=== PATIENT | male | born 1980 ===

== ENCOUNTER 2021-12-23 18:44 | Inpatient (IN) | payer MEDICAID, OTHER ==
[2021-12-23] MEDS ORDERED: MAG HYDROX/AL HYDROX/SIMETH 30 ML CUP PO PRN (18:52)
[2021-12-23] MEDS ORDERED: OLANZapine 10 MG VIAL IM PRN (18:52)
[2021-12-23] MEDS ORDERED: hydrOXYzine HCL 50 MG/ML 1 ML VIAL IM PRN (18:52)
[2021-12-23] MEDS ORDERED: MAGNESIUM HYDROXIDE 2,400 MG/10 ML CUP PO PRN (18:52)
[2021-12-24] MEDS: OLANZapine 5 MG TAB PO PRN ×3 (02:44→17:02)
[2021-12-24] MEDS: hydrOXYzine pamoate 25 MG CAP PO PRN ×3 (02:44→17:02)
[2021-12-24] MEDS: NICOTINE 14MG/24HR PATCH TRANSDERM SCH (09:35)
[2021-12-24] MEDS: ACETAMINOPHEN TAB 325 MG TAB PO PRN ×2 (09:57→17:02)
--- NOTE | 2021-12-24 10:43 | P.HP ---
Psychiatric H&P - . H&P Date: 12/24/21 History & Physical: Allergies Allergy/AdvReac Type Severity Reaction Status Date / Time No Known Allergies Allergy Verified 12/23/21 18:48 Vital Signs Temp 99.2 F 12/24/21 01:50 Pulse 81 12/24/21 01:50 Resp 18 12/24/21 01:50 BP 139/86 12/24/21 01:50 Pulse Ox 97 12/24/21 01:50 FiO2 Intake & Output 12/23/21 12/24/21 12/24/21 18:59 06:59 18:59 Weight 85 kg 67.3 kg 12/24/21 10:37 IDENTIFYING DATA: Patient is a 41-year-old male, currently lives with his mother and stepfather. She has 3 children, . HPI: Patient presented to the hospital as a transfer from [place]. Patient was on a petition filled out by social work case manager the claims the patient was expressing auditory hallucinations, paranoid thinking, delusional and believes that his father is John Medel. Patient was admitted involuntarily to the mental health unit. He was seen wandering the hallway and appeared to be confused however was agreeable to speak to automobile service writer. Patient appears to be irritable, has low frustra tion tolerance. He had several tattoos over his body and also his head. He did not know why he is in the hospital. She was focused on obtaining his clothes. He made some bizarre statements and was illogical at times. He states that he has a history of bipolar disorder and stopped taking his medications. He does not know why he is in the hospital. He was fairly guarded and evasive as well. He states that "is it because I'm a knife". He knows that he is an [place] however police that it is 12/28/2021. He knows his full name. He claims that his sleep is fair appetite is poor. He claims that he was on Adderall and was requesting to be on it again. Patient denies any suicidal or homicidal ideations intent or plan. At this time patient denies any auditory or visual hallucinations. Claims that he has a history of manic episodes however does not have racing thoughts. He was given Zyprexa earlier and appears to be somewhat drowsy. Patient admits to using marijuana occasionally, cigarettes daily. Denies any other recreational drugs. PAST PSYCHIATRIC HISTORY: Patient states that he has a history of bipolar disorder. He claims that he is previously on psychiatric medications for bipolar disorder over is not able to recall which ones he was on except for Adderall. He states that he has been psychiatrically hospitalized several times in the past including spending one year in a forensic facility. Patient denies any psychiatric outpatient follow-up. Patient denies any history of suicide attempts in the past. PMH: As per medicine H&P ALLERGIES: as per EMR CHEMICAL DEPENDENCY HISTORY: as per HPI FAMILY PSYCHIATRIC/SUBSTANCE USE HISTORY: Claims that his father and uncle both abused alcohol. SOCIAL HISTORY: [place] and states that he completed high school. He states that he is currently at this time. He states that he lives with his mother and also stepfather. 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 He claims that he completed high school. MENTAL STATUS EXAM: General Appearance: Patient appears to be thin, several tattoos over his body and head. Shaved head. stated age is alert, evasive and guarded. Patient appears to have poor hygiene and grooming. Behavior: Patient is seated without any agitated behavior. Uncooperative at times. Irritable. Speech: Patient's speech is fluent and nonpressured. Bizarre at times Mood/Affect: Patient reports their mood is "okay", affect is incongruent and constricted. Suicidality/Homicidality: Patient denies having any homicidal ideation intent or plan. Denies any suicidal ideations intent or plan Perceptions: Patient denies any visual hallucinations and denies any auditory hallucinations Though content/process: Bizarre content, illogical at times. Not endorsing any delusions. Memory and concentration: AOX2, does not know today's current date, attention span is poor. Can spell "WORLD" backwards Judgment and insight: poor STRENGTHS/WEAKNESSES: strength is that patient is resilient. Weakness is that patient has poor judgment and is impulsive INTELLECT: average IMPRESSIONS: Bipolar disorder with psychotic features Noncompliance with medications Cannabis use disorder mild Nicotine dependence PLAN: -Patient is admitted under involuntary status to MHU for stabilization of psychiatric symptoms and safety. Patient has not signed medication consent and is placed in patient's chart. A second certification was completed and along with petition will be filed for court. -Medications : Will start patient on Abilify 5 mg daily for psychosis/mood stabilization. Trazodone 50 mg daily at bedtime for sleep/mood. -vistaril and zyprexa PRN for agitation/aggression -Patient was counselled on substance abuse and desired to cut back on use -Patient was informed of the risks, benefits and side effects of the medication and patient verbally consented to taking the medications. Patient signed med consent form and was placed in chart. -Internal Medicine consult to perform medical evaluation and physical. -NRT - nicotine patch -SW on board for discharge planning. Encourage patient to participate in groups to work on coping skills. Will await deferral and court date. 12/24/21 10:43
[2021-12-24] MEDS: ARIPiprazole 5 MG TAB PO SCH (11:49)
[2021-12-24] MEDS: BENZOCAINE/MENTHOL LOZENG 1 EACH LOZENGE MUCOUS MEM PRN ×2 (13:53→17:01)
[2021-12-24 18:33] LABS: Chol/HDL Ratio 2.35 Ratio; LDL Cholesterol,Calculated 42.4 mg/dL (0.0-131.0); VLDL Calculation 13.28 mg/dL (5.00-40.00)
[2021-12-24] MEDS: METHADONE 10 MG TAB PO SCH (18:44)
[2021-12-24] MEDS: METHADONE 5 MG TAB PO SCH (19:22)
[2021-12-24] MEDS: traZODone HCL 50 MG TAB PO SCH (20:20)
[2021-12-25] MEDS: BENZOCAINE/MENTHOL LOZENG 1 EACH LOZENGE MUCOUS MEM PRN ×2 (05:06→15:01)
[2021-12-25] MEDS: hydrOXYzine pamoate 25 MG CAP PO PRN ×3 (06:02→20:17)
[2021-12-25 07:05] VITALS: BP 171/93; PULSE 92; RESP 16; TEMP 98.8
[2021-12-25] MEDS: METHADONE 5 MG TAB PO SCH (07:56)
[2021-12-25] MEDS: METHADONE 10 MG TAB PO SCH (07:56)
[2021-12-25] MEDS: ARIPiprazole 5 MG TAB PO SCH (07:58)
[2021-12-25] MEDS: NICOTINE 14MG/24HR PATCH TRANSDERM SCH ×2 (07:59→20:27)
[2021-12-25] MEDS: OLANZapine 5 MG TAB PO PRN ×3 (09:27→21:46)
--- NOTE | 2021-12-25 11:17 | P.PN ---
Progress Note - Text Progress Note Date: 12/25/21 Interval History: Patient was seen wandering the hallways and was directable and agreeable to naima bello with scenario writer in the office. Patient claims that he has "a lot of stuff." When he leaves the hospital and feels that he is doing much better today. He appears to be somewhat drowsy and took a prn Vistaril and Zyprexa this morning. He states that his mood and anxiety have been improving. He was thankful for being placed back on methadone. He claims that he did not get a full night's rest however does not want his trazodone increased. He appears to be somewhat directable today however was mildly irritable when talking about the court process and was fairly focused on discharge. At this time patient denies any suicidal or homical ideations, intent or plan. Patient denies any auditory, visual hallucinations and denies any paranoia or delusions. Patient denies any side effects from the medications and has been compliant with meds. Mental Status Exam: General Appearance: Patient appears to be thin, several tattoos over his body and head. Shaved head. stated age is alert, more cooperative. Patient appears to have improving hygiene and grooming. Behavior: Patient is seated without any agitated behavior. Less irritable today. Speech: Patient's speech is fluent and nonpressured. Mood/Affect: Patient reports their mood is "ok", affect is incongruent and constricted. Suicidality/Homicidality: Patient denies having any homicidal ideation intent or plan. Denies any suicidal ideations intent or plan Perceptions: Patient denies any visual hallucinations and denies any auditory hallucinations Though content/process: More goal oriented. Focused on discharge. Not endorsing any delusions. Memory and concentration: AOX3, improved attention span Judgment and insight: poor, improving mildly IMPRESSIONS: Bipolar disorder with psychotic features Noncompliance with medications Cannabis use disorder mild Nicotine dependence Plan: -Patient continues to meet criteria for inpatient psychiatric admission for symptom stabilization and safety. Patient has not signed adult voluntary form and medication consent and was placed in patient's chart. -Medications: Increase Abilify by mouth to 10 mg daily from psychosis/mood stabilization. Trazodone 50 mg daily at bedtime for sleep/mood. Continue with methadone 125 mg daily or opiate use disorder. -When necessary Vistaril and Zyprexa prn for agitation/aggression. -NRT - nicotine patch -SW on board for discharge planning. Encouraged the patient to participate in milieu. Currently awaiting deferral with child specialist and court date.
[2021-12-25] MEDS: traZODone HCL 50 MG TAB PO SCH (20:16)
[2021-12-25] MEDS: NICOTINE GUM (POLACRILEX) 2 MG GUM BUCCAL PRN (20:27)
[2021-12-26] MEDS: METHADONE 5 MG TAB PO SCH (07:49)
[2021-12-26] MEDS: METHADONE 10 MG TAB PO SCH (07:49)
[2021-12-26] MEDS: NICOTINE 14MG/24HR PATCH TRANSDERM SCH (07:50)
[2021-12-26] MEDS ORDERED: ARIPiprazole 10 MG TAB PO SCH (09:00)
[2021-12-26] MEDS: hydrOXYzine pamoate 25 MG CAP PO PRN ×2 (09:46→15:54)
[2021-12-26] MEDS: OLANZapine 5 MG TAB PO PRN ×2 (09:46→15:55)
--- NOTE | 2021-12-26 09:49 | P.DS ---
Providers Date of admission: 12/24/21 01:29 Expected date of discharge: 12/26/21 Attending physician: Silvestre Conway MD Consults: 12/23/21 18:52 Consult Physician Routine Consulting Provider: Wendy Gutierrez Consult Reason/Comments: H & P Do you want consulting provider notified?: Yes Primary care physician: Stated None - Discharge Diagnosis(es) (1) Bipolar disorder with psychotic features Current Visit: Yes Status: Acute Priority: High (2) Non compliance w medication regimen Current Visit: Yes Status: Acute Priority: Medium (3) Cannabis use disorder, mild, abuse Current Visit: Yes Status: Acute Priority: Medium (4) Nicotine dependence Current Visit: Yes Status: Acute Priority: Low Hospital Course: Admission HPI: Admission note was completed by typewriter repairer " Patient is a 41-year-old male, currently lives with his mother and stepfather. She has 3 children, . Patient presented to the hospital as a transfer from [place]. Patient was on a petition filled out by transition social worker the claims the patient was expressing auditory hallucinations, paranoid thinking, delusional and believes that his father is John Medel. Patient was admitted involuntarily to the mental health unit. He was seen wandering the hallway and appeared to be confused however was agreeable to speak to typewriter repairer. Patient appears to be irritable, has low frustration tolerance. He had several tattoos over his body and also his head. He did not know why he is in the hospital. She was focused on obtaining his clothes. He made some bizarre statements and was illogical at times. He states that he has a history of bipolar disorder and stopped taking his medications. He does not know why he is in the hospital. He was fairly guarded and evasive as well. He states that "is it because I'm a knife". He knows that he is an [place] however police that it is 12/28/2021. He knows his full name. He claims that his sleep is fair appetite is poor. He claims that he was on Adderall and was requesting to be on it again. Patient denies any suicidal or homicidal ideations intent or plan. At this time patient denies any auditory or visual hallucinations. Claims that he has a history of manic episodes however does not have racing thoughts. He was given Zyprexa earlier and appears to be somewhat drowsy. Patient admits to using marijuana occasionally, cigarettes daily. Denies any other recreational drugs." Hospital course: Upon admission to the unit patient was admitted involuntarily on a petition and certificate and a second certificate was completed and faxed with the courts. Patient ended up signing a deferral and will be deferring over zoom with veterinary medical officer before discharge today and agreeing to treatment. Patient was initially bizarre, confused and psychotic however with treatment got along well with other patients on the unit and followed unit protocol. Patient was compliant with the medications and denied any side effects throughout hospital course. Patient was started on Abilify and increased to a dose of 10 mg daily by mouth for mood stabilization/psychosis. Patient was also started on trazodone 50 mg daily at bedtime for insomnia/mood. Patient was restarted back on methadone 125 mg daily for opiate use disorder and this dose was confirmed with his MAT treatment provider. Patient had an ecg performed prioir to being restarted back on Methadone. vistaril prn for anxiety. Patient spoke of his stressors and engaged in therapy both group and individual. Patient was also seen by medical team for history and physical exam. Throughout the course of the hospitalization patient gradually improved with regards to mood stabilization, psychosis, anxiety, sleep and returned back to their baseline level of functioning. On the day of discharge patient denied any suicidal or homicidal ideations intent or plan denied any auditory or visual hallucinations. Patient endorsed wanting to live for his children and also his future. The patient denied any access to guns or weapons. Patient denied any paranoia and did not endorse any delusions. Patient does have a significant history of substance abuse and was counseled on abstaining from all substances including alcohol and marijuana. Patient was offered however declined inpatient substance- abuse rehab. Patient was also counseled on the medications and need for regular compliance and was encouraged to follow-up with their outpatient appointment for mental health and also for primary care. Mental status exam: General Appearance: Patient appears to be thin, several tattoos, shaved head, stated age is alert, pleasant, and cooperative. Patient is in no acute distress and has improved hygiene and grooming Behavior: Patient is calmly seated without any agitated behavior. Speech: Patient's speech is fluent and nonpressured. Mood/Affect: Patient reports their mood is "good", affect is congruent and euthymic. Suicidality/Homicidality: Patient denies having any suicidal or homicidal ideation intent or plan. Perceptions: Patient denies any auditory or visual hallucinations. Though content/process: There is no evidence of any delusional thought content and thought process is linear and goal-directed. more future oriented Memory and concentration: AOX3, grossly intact for the purposes of this session. Can spell "WORLD" backwards correctly. Judgment and insight: improved with guarded prognosis Impression: Bipolar disorder with psychotic features Noncompliance with medication regimen Cannabis use disorder mild diffuse Nicotine dependence Plan: -Continue with discharge today as patient has improved and stabilized psychiatrically and is not currently an imminent threat to himself and/or others. Patient will remain at chronically elevated risk for harm to self and/or others due to his impulsivity and substance abuse. -Continue medications: Abilify 10 mg daily by mouth for psychosis/mood stabilization, trazodone 50 mg daily at bedtime for sleep/mood, Vistaril 50 mg daily when necessary for anxiety. Patient will resume MAT treatment at his methadone clinic. -Patient was counseled on the need for medication compliance and appropriate follow-up at mental health and also primary care for medical issues. Patient verbalized understanding and agreed. -Social work to help arrange with patient's discharge today. Social work also to arrange for patients follow up appointments for psychiatric care along with follow up with primary care provider. -Patient counseled on abstaining from recreational drugs and marijuana and alcohol. Was informed/educated on the adverse effects on their physical and mental health. Patient verbally agreed and understood. Patient was offered substance abuse treatment however declined at this time. -Patient was instructed to return to the hospital or seek immediate medical care if their psychiatric or medical symptoms do worsen or reoccur. Allergies Allergy/AdvReac Type Severity Reaction Status Date / Time No Known Allergies Allergy Verified 12/23/21 18:[address] Glu mg/dL 120 12/24/21 11:27 Hemoglobin A1c 5.8 % (0.0-6.0) 12/24/21 11:27 Triglycerides 66.40 mg/dL (0.00-149.00) 12/24/21 11:27 Cholesterol 97.00 mg/dL (0.00-200.00) 12/24/21 11:27 LDL Cholesterol, Calc 42.4 mg/dL (0.0-131.0) 12/24/21 11:27 VLDL Cholesterol, Calc 13.28 mg/dL (5.00-40.00) 12/24/21 11:27 HDL Cholesterol 41.30 mg/dL (40.00-60.00) 12/24/21 11:27 Cholesterol/HDL Ratio 2.35 Ratio 12/24/21 11:27 TSH 0.828 mIU/L (0.465-4.680) 12/24/21 11:27 Vital Signs Temp 98.8 F 12/25/21 04:28 Pulse 92 12/25/21 04:28 Resp 16 12/25/21 04:28 BP 171/93 12/25/21 04:28 Pulse Ox 97 12/24/21 01:50 FiO2 Patient Condition at Discharge: Stable Plan - Discharge Summary New Discharge Prescriptions: New ARIPiprazole [Abilify] 10 mg PO DAILY 30 Days tab traZODone HCL [Desyrel] 50 mg PO HS 30 Days tab Methadone [Dolophine] 120 mg PO DAILY tab Nicotine Gum (Polacrilex) [Nicorette] 2 mg BUCCAL Q2HR PRN 28 Days pieceofgum PRN Reason: Nicotine Cravings hydrOXYzine pamoate [Vistaril] 50 mg PO DAILY PRN 30 Days cap PRN Reason: Anxiety Methadone [Dolophine] 5 mg PO DAILY tab Nicotine 14Mg/24Hr Patch [Habitrol] 1 patch TRANSDERM DAILY 14 Days patch Discharge Medication List ARIPiprazole [Abilify] 10 mg PO DAILY 30 Days tab 12/26/21 [Rx] Methadone [Dolophine] 5 mg PO DAILY tab 12/26/21 [Rx] Methadone [Dolophine] 120 mg PO DAILY tab 12/26/21 [Rx] Nicotine 14Mg/24Hr Patch [Habitrol] 1 patch TRANSDERM DAILY 14 Days patch 12/26/21 [Rx] Nicotine Gum (Polacrilex) [Nicorette] 2 mg BUCCAL Q2HR PRN 28 Days pieceofgum 12/26/21 [Rx] hydrOXYzine pamoate [Vistaril] 50 mg PO DAILY PRN 30 Days cap 12/26/21 [Rx] traZODone HCL [Desyrel] 50 mg PO HS 30 Days tab 12/26/21 [Rx] Discharge Disposition: HOME SELF-CARE
--- NOTE | 2021-12-26 10:06 | P.HPMEDMHU ---
History of Present Illness H&P Date: 12/26/21 Patient is a 41-year-old male with past medical history of tobacco abuse who was admitted to the psych [facility] for bipolar with psychotic features. Patient reports having mild dyspnea and occasional cough with sputum with some blood-tinged in it. He otherwise has no acute complaints. I did speak with the psychiatrist whose plan is for discharge today. Patient states that he is looking forward to going home. Review of Systems 10 ROS reviewed and are negative except as noted in HPI Medications and Allergies Home Medications Medication Instructions Recorded Confirmed Type ARIPiprazole [Abilify] 10 mg PO DAILY 30 Days tab 12/26/21 Rx Methadone [Dolophine] 5 mg PO DAILY tab 12/26/21 Rx Methadone [Dolophine] 120 mg PO DAILY tab 12/26/21 Rx Nicotine 14Mg/24Hr Patch [Habitrol] 1 patch TRANSDERM DAILY 14 Days 12/26/21 Rx patch Nicotine Gum (Polacrilex) 2 mg BUCCAL Q2HR PRN 28 Days 12/26/21 Rx [Nicorette] pieceofgum hydrOXYzine pamoate [Vistaril] 50 mg PO DAILY PRN 30 Days cap 12/26/21 Rx traZODone HCL [Desyrel] 50 mg PO HS 30 Days tab 12/26/21 Rx Allergies Allergy/AdvReac Type Severity Reaction Status Date / Time No Known Allergies Allergy Verified 12/23/21 18:48 Physical Exam Osteopathic Statement: *. No significant issues noted on an osteopathic structural exam other than those noted in the History and Physical/Consult. General: [Alert and oriented, well nourished, no acute distress]. Eye: [PERRL, EOMI, normal conjunctiva]. HENT: [Normocephalic, clear tympanic membranes, normal hearing, moist oral mucosa, no scleral icterus, no sinus tenderness]. Neck: [Supple, non-tender, no carotid bruits, no JVD, no lymphadenopathy]. Lungs: [Clear to auscultation and percussion, non-labored respiration]. Heart: [Normal rate, regular rhythm, no murmur, gallop or edema]. Abdomen: [Soft, non-tender, non-distended, normal bowel sounds, no masses]. Musculoskeletal: [Normal range of motion and strength, no tenderness or swelling]. Skin: [Skin is warm, dry and pink, no rashes or lesions]. Neurologic: [Awake, alert, and oriented X3, CN II-XII intact]. Psychiatric: [Cooperative, appropriate mood and affect]. Cranial Nerve Examination - Cranial Nerves Cranial Nerve I- Olfactory: Intact Cranial Nerve II- Optic: Intact Cranial Nerve III- Oculomotor: Intact Cranial Nerve IV- Trochlear: Intact Cranial Nerve V- Trigeminal: Intact Cranial Nerve - Abducens: Intact Cranial Nerve VII- Facial: Intact Cranial Nerve VIII- Auditory: Intact Cranial Nerve IX- Glossopharyngeal: Intact Cranial Nerve X- Vagus: Intact Cranial Nerve XI- Accessory: Intact Cranial Nerve XII- Hypoglossal: Intact Assessment and Plan Assessment: Mild hemoptysis likely due to chronic bronchitis Chronic bronchitis with likely underlying COPD Currently patient has no wheezing and is currently satting well on room air. Patient seen walking the hallways without any dyspnea. Patient instructed to follow with his PCP for further workup. No further workup needed while in the hospital. Patient also counseled on smoking cessation Tobacco abuse See management above Bipolar with psychotic features As per your psychiatry management Please do not hesitate to contact [facility] with any questions
[2021-12-26] MEDS: NICOTINE GUM (POLACRILEX) 2 MG GUM BUCCAL PRN (11:56)
== END 2021-12-26 16:00 | disposition home or self-care (01) | DRG 885 ==
LOC: 3MHU 12-24 01:29
PROVIDERS: ADMIT Psychiatry & Neurology Psychiatry; ATTEND Psychiatry & Neurology Psychiatry
DX: F31.5 Bipolar disorder, current episode depressed, severe, with psychotic features (principal); R45.851 Suicidal ideations; F11.10 Opioid abuse, uncomplicated; F12.10 Cannabis abuse, uncomplicated; F17.210 Nicotine dependence, cigarettes, uncomplicated; F41.9 Anxiety disorder, unspecified; G47.00 Insomnia, unspecified; Z79.899 Other long term (current) drug therapy; Z91.14 Patient's other noncompliance with medication regimen
CPT/HCPCS: 80061; 83036; 84443